=== PATIENT | female | born 1950 | race Caucasian/White ===

== ENCOUNTER 2016-08-17 20:15 | Emergency (ER) | payer OTHER ==
[~2016-08-17 20:15] MED LIST: ALPRAZOLAM PO; CELEXA PO; CIPRO PO; DICYCLOMINE HCL20 MG PO; IMODIUM2 MG PO; LEVOXYL75 MCG; LISINOPRIL10 MG PO; PHENERGAN PO; PHENERGAN PR; PHENERGAN25 M1 PO; PREVACID PO; THYROID PILL; THYROID PO; VICODIN 5/500 T1 TAB PO
[2016-08-17] MEDS ORDERED: NEXIUM PO (20:20)
[2016-08-17] MEDS ORDERED: CLONAZEPAM0.5 MG PO (20:20)
[2016-08-17] MEDS ORDERED: TOPIRAMATE50 MG PO (20:21)
[2016-08-17] MEDS ORDERED: ESCITALOPRAM OX10 MG PO (20:21)
[2016-08-17] MEDS ORDERED: IMITREX PO (20:21)
== END 2016-08-17 22:24 | disposition left against medical advice (07) ==
LOC: SED 20:15
DX: Z53.21 Procedure and treatment not carried out due to patient leaving prior to being seen by health care provider (principal)